=== PATIENT | female | born 1970 ===

== ENCOUNTER 2018-04-10 19:10 | Emergency (ER) | payer OTHER ==
[2018-04-10] MEDS ORDERED: Naproxen 500 MG TAB PO ONE ×2 (20:36→22:18)
--- NOTE | 2018-04-10 20:38 | ED PDOC ---
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 Patient states pain always there but worsens with bowel movements. Patient states her bowel movements are not regular, and that she usually has to strain when she has them, last one two days ago. Patient also reports intermittent abdominal pain, left lower side; states she was evaluated at [facility] ED last week for same. Denies fever, nausea/vomiting, chest pain, urinary symptoms, vaginal bleeding/discharge, urinary symptoms. Past Medical History Reviewed: Historical Data, Nursing Documentation, Vital Signs Vital Signs: Last Vital Signs Temp 98.5 F 04/10/18 19:38 Pulse 71 04/10/18 19:38 Resp 16 04/10/18 19:38 BP 131/74 04/10/18 19:38 Pulse Ox 97 04/10/18 19:38 - Medical History PMH: Asthma - Surgical History Surgical History: Other surgeries: hysterectomy - Family History Family History: States: Unknown Family Hx - Immunization History Hx Tetanus Toxoid Vaccination: No Hx Influenza Vaccination: No Hx Pneumococcal Vaccination: No - Home Medications Home Medications: Ambulatory Orders Medication Instructions Recorded Dicyclomine [Bentyl] 20 mg PO TID PRN #12 tab 04/04/18 Multivitamin [Multi-Vitamin Daily] 1 each PO DAILY 04/04/18 Ondansetron ODT [Zofran ODT] 4 mg PO TID PRN #12 odt 04/04/18 Docusate [Colace] 100 mg PO BID #30 cap 04/10/18 Hard Fat/Phenylephrine [place] 1 sup RC BID #28 sup 04/10/18 [Hemorrhoidal 88.7%-0.25%] Naproxen [Naprosyn] 500 mg PO Q12 PRN #20 tablet 04/10/18 - Allergies Allergies/Adverse Reactions: Allergies Allergy/AdvReac Type Severity Reaction Status Date / Time No Known Allergies Allergy Unverified 04/04/18 19:15 Review of Systems ROS Statement: Except As Marked, All Systems Reviewed And Found Negative Gastrointestinal: Positive for: Abdominal Pain, Constipation, Rectal Pain Physical Exam - Reviewed Nursing Documentation Reviewed: Yes Vital Signs Reviewed: Yes - Physical Exam Appears: Positive for: Well, Non-toxic, No Acute Distress Head Exam: Positive for: ATRAUMATIC, NORMAL INSPECTION, NORMOCEPHALIC Skin: Positive for: Normal Color Eye Exam: Positive for: Normal appearance ENT: Positive for: Normal ENT Inspection Cardiovascular/Chest: Positive for: Regular Rate, Rhythm Respiratory: Positive for: Normal Breath Sounds Gastrointestinal/Abdominal: Positive for: Bowel Sounds, Soft, Tenderness (llq) Back: Positive for: Normal Inspection Rectal: Positive for: Hemorrhoids (external; 12:00 and 6:00 positions. Melia. No drainage), Other (exam foot cutter Ambar Danielle RN) Extremity: Positive for: Normal ROM Neurologic/Psych: Positive for: Alert, Oriented (x3) - ECG O2 Sat by Pulse Oximetry: 97 - Progress ED Course And Treament: -naproxen po -upreg -udip Labs, CT reviewed from [facility] ED visit; WNL. Patient resting comfortably. Patient educated on findings, discharged with rx Naproxen, Venita-julia, Colace Advised fluids, high fiber diet FOllow up PMD within 2-3 days Return precautions given Disposition - Clinical Impression Clinical Impression: Rectal pain, Hemorrhoids, Constipation - Patient ED Disposition Is Patient to be Admitted: No Counseled Patient/Family Regarding: Studies Performed, Diagnosis, Need For Followup, Rx Given - Disposition Referrals: [facility] [Outside] Disposition: Routine/Home Disposition Time: 21:49 Condition: IMPROVED Prescriptions: Docusate [Colace] 100 mg PO BID #30 cap Hard Fat/Phenylephrine [place] [Hemorrhoidal 88.7%-0.25%] 1 sup RC BID #28 sup Naproxen [Naprosyn] 500 mg PO Q12 PRN #20 tablet PRN Reason: Pain, Moderate (4-7) Instructions: Hemorrhoids, Constipation in Adults Forms: Locate Special Diet (Welsh) Print Language: MAORI
[2018-04-11 02:29] VITALS: BP 129/77; PULSE 84; RESP 18; TEMP 98.2; O2SAT 98
== END 2018-04-10 22:22 | disposition home or self-care (01) ==
LOC: H.ER 19:10
DX: K62.89 Other specified diseases of anus and rectum (principal); K64.9 Unspecified hemorrhoids; K59.00 Constipation, unspecified; J45.909 Unspecified asthma, uncomplicated; Z90.710 Acquired absence of both cervix and uterus